=== PATIENT | female | born 1955 | race Caucasian/White ===

== ENCOUNTER 2017-03-21 09:09 | Emergency (ER) | payer MEDICAID ==
[2017-03-21 10:26] LABS: BASOPHIL % 0.4 % (0-2); PLATELET COUNT 234 x10^3mcL (130-400); RED CELL DISTRIBUTION WIDTH 13.3 % (11.5-14.5)
[2017-03-21 10:39] LABS: CALCIUM 8.6 mg/dL (8.5-10.1); CARBON DIOXIDE 28.1 mmol/L (21-32); CHLORIDE SERUM 104 mmol/L (98-107); CREATININE SERUM 0.9 mg/dL (0.6-1.0); GFR1 > 60 mL/min; GLUCOSE SERUM 111 mg/dL (74-106); POTASSIUM SERUM 3.8 mmol/L (3.5-5.1); SODIUM SERUM 141 mmol/L (136-145)
[2017-03-21 10:42] LABS: ALBUMIN 3.5 g/dL (3.4-5.0); ALKALINE PHOSPHATASE 61 U/L (46-116); ALT/SGPT 20 U/L (14-59); AST/SGOT 18 U/L (15-37); BILIRUBIN TOTAL 0.4 mg/dL (0.20-1.00)
[2017-03-21] MEDS ORDERED: HYDROCHLOROTHIA25 MG PO (10:44)
[2017-03-21] MEDS ORDERED: SYNTHROID0.112 MG PO (10:45)
[2017-03-21] MEDS ORDERED: LORAZEPAM1 MG PO (10:45)
[2017-03-21] MEDS ORDERED: TAMOXIFEN CITRA20 MG PO (10:47)
[2017-03-21] MEDS ORDERED: BAYER ASPIRIN C81 MG PO (10:47)
[2017-03-21] MEDS ORDERED: BACLOFEN10 MG PO (10:48)
[2017-03-21] MEDS ORDERED: ULTRAM50 MG PO (10:48)
[2017-03-21 11:28] VITALS: BP 143/84
== END 2017-03-21 11:23 | disposition short-term general hospital (02) ==
LOC: ED 09:09
PROVIDERS: Emergency Medicine
DX: R07.89 Other chest pain (principal); R11.2 Nausea with vomiting, unspecified; M54.9 Dorsalgia, unspecified; I10 Essential (primary) hypertension; E05.90 Thyrotoxicosis, unspecified without thyrotoxic crisis or storm; Z88.6 Allergy status to analgesic agent; Z91.040 Latex allergy status; Z79.899 Other long term (current) drug therapy
CPT/HCPCS: 83880; J1644; J2405; Q0092